=== PATIENT | male | born 1955 | race Caucasian/White ===

== ENCOUNTER 2024-10-31 09:20 | Emergency (ER) | payer MEDICARE, SELFPAY ==
--- OUTSIDE RECORDS SUMMARY | 2014-07-11 10:31 | XMS_ITS | Continuity of Care Document ---
Author Organization [facility] Address [address] [address] [place] [address] Phone Care Team Providers Care Manager Income Tax Name Role Phone Daniel Mendes MD Unavailable Unavailable Medications Medication Instructions Dosage Effective Dates (start - stop) Status Comments MiralaxBisacodylMagCit Colon Prep Use as directed - Active MiralaxBisacodylMagCit Colon Prep Use as directed - Active Zomig 5 mg Nasal [place] as needed - Act jewel oxycodone 15 [...] Diagnoses Date Provider Providers Copied on Encounter [facility], [address] [address], [facility] [place], [id number], [place] tel:[phone] [facility] External Referral 5 Vaughn Sanchez. [address] [facility], [facility] [address], [place], [place], [id number], [place]. tel:[phone] Referring Provider: Gamaliel Farrell MD L, [address] [place], [address]. tel:[phone] [facility], [address] [address], [place], [id number], [place] tel:[phone] No Information 3 Abhijit Rivas. [address] [facility], [address], [place], [place], [id number], [place]. tel:[phone] Referring Provider: Gamaliel Lemons, [address] [place], [address]. tel:[phone] [facility], [address] [address], [place], [place], [id number], [place] tel:[phone] [facility] [place] [facility] Colon Cancer ScreeningBeni gn Neoplasm Lg [address]el 5200 9 No Information Referring Provider: Nishant Stahl, [address] [place], [address]. tel:[phone] Family History Family Member Type Diagnosis Age At Onset No Information Payers Payer name Insurance type Covered republican ID Authoriza tion(s) No Information Social History [...]
--- OUTSIDE RECORDS SUMMARY | 2021-07-02 11:18 | XMS_ITS | Continuity of Care Document ---
Author Organization [facility] Address [address] [place] [phone] Phone Care Team Providers Care Pcas Name Role Phone Will Jared HANSEN Unavailable Unavailabl e Advance Directives Directive Yes / No Effective Date File Name No Information Encounters Encounter Description Practice Location Reason(s) For Visit Diagnoses Date Provider Providers Copied on Encounter [facility], [address] [place] [address], [id number], [place] tel:[phone] [facility] No Information Will Jared. [address] [facility] [place], [place], [id number], [place]. tel:[phone] Family History Family Member Type Diagnosis Age At Onset No Information Payers Payer name Insurance type Covered libertarian ID Authoriza tion(s) No Information Social History [...]
[2024-10-31] VITALS (17 sets, daily range): BP systolic 97–137; BP diastolic 63–79; PULSE 63–71; RESP 18; TEMP 36.6; O2SAT 90–94; BMI 22.4
--- NOTE | 2024-10-31 10:00 | CRLHL7_ITS ---
For Patients: As a result of the Century Cures Act, medical imaging exams and procedure reports are released immediately into your electronic medical record. You may view this report before your referring provider. If you have questions, please contact your health care provider. Indication: Right foot pain. Technique: Right foot 3 views Comparison: None Findings: Plantar and posterior calcaneal spurs are present. There is no joint effusion. No acute fracture. Midfoot alignment is maintained. Impression: No sign of acute injury. Base of the 3rd and 4th metatarsals is intact. Dictated by Guilherme Montes MD @ 10/31/2024 11:13:43 AM (Electronically Signed)
--- NOTE | 2024-10-31 10:00 | CRLHL7_ITS ---
For Patients: As a result of the Cures Act, medical imaging exams and procedure reports are released immediately into your electronic medical record. You may view this report before your referring provider. If you have questions, please contact your health care provider. INDICATION: FALL/ PAIN lower ribs, posterior - fall COMPARISON: Not available TECHNIQUE: PA chest and right ribs. FINDINGS: The lungs are clear. There is no evidence of pulmonary contusion, pneumothorax or pleural effusion. Mild tortuosity of the aorta. Vascular calcifications oblique detail views of the ribs demonstrate no evidence of fracture or intrinsic bone lesion. There is no evidence of pleural hematoma. IMPRESSION: IMPRESSION:Negative chest and right ribs. Dictated by Guilherme Montes MD @ 10/31/2024 11:15:38 AM (Electronically Signed)
[2024-10-31] MEDS: HYDROCODONE-ACETAMIN 5-325 MG 1 TAB 2 TAB PO (10:08)
--- NOTE | 2024-10-31 10:23 | ED_ITS ---
HPI - General Adult General Chief complaint: Rib Pain Stated complaint: fell yesterday and has right side pain by ribs Time Seen by Provider: 10/31/24 09:55 Source: patient and family Mode of arrival: ambulatory Limitations: no limitations History of Present Illness HPI narrative: 69-year-old male presenting today with right-sided mid back pain after falling yesterday in the shower. He states that he tripped coming out of the shower and then fell onto the toilet. He has been having worsening right-sided midback pain since then. He denies shortness of breath. He does complain of right foot pain as well unsure of what his foot hit on the way down. He did not hit his head or lose consciousness. He was able to get up without assistance. He denies neck pain. No abdominal pain. Walking is uncomfortable because of his foot but he continues to walk unassisted. Related Data Home Medications ?Medication ?Instructions ?Recorded ?Confirmed methimazole 5 mg tablet 5 mg PO QDAY 03/30/23 phenytoin sodium extended 30 mg PO 03/30/23 03/30/23 capsule (Dilantin) pregabalin 25 mg capsule 25 mg PO QDAY 03/30/2310/31 sumatriptan succinate 25 mg tablet See Rx Instructions PO .COMPLEX 03/30/23 03/30/23 Previous Rx's ?Medication ?Instructions ?Recorded albuterol sulfate 90 mcg/actuation 2 puff inhalation Q 4-6H PRN 03/30/23 aerosol inhaler shortness of breath or wheez ing #6.7 grams Allergies Allergy/AdvReac Type Severity Reaction Status Date / Time No Known Drug Allergies Allergy Verified 10/31/24 15:03 Review of Systems Status of ROS: Reports: 10 or more systems reviewed and unremarkable except as noted in History and below [facility] Medical History Acute bronchitis ?J20.9 - Acute bronchitis, unspecified (ICD-10) Shortness of breath ?R06.02 - Shortness of breath (ICD-10) Social History Smoking Status: Never smoker How often do you have a drink containing alcohol: never How often do you have six or more drinks on one occasion: Never AUDIT-C Alcohol total score: 0 Non-prescribed substance use: denies use service: No Exam Narrative: Exam Narrative: Well-nourished well-developed patient , very uncomfortable. Alert and oriented x3. Answers questions appropriately. Mood and affect are appropriate. Thoughts are goal oriented and rational. No tangential or magical thinking noted. Patient speaks in full sentences without needing to catch his breath. GCS is 15. Patient is speaking and breathing without difficulty. There is no obvious significant bleeding noted. HEENT: Normocephalic atraumatic. Pupils are equally round reactive to light. Extraocular muscles are intact. Conjunctivae are moist without any icterus noted. Moist mucous membranes. Posterior pharynx is normal. No trauma noted to the inside of the mouth. Neck is soft without tenderness. Cardiovascular: Heart is regular rate and rhythm S1 and S2 are present without any murmurs. Lungs: Slightly decreased breath sounds bilaterally no wheezes rhonchi or rales are appreciated. Deep breathing causes discomfort in the right mid back. Significant tenderness noted over the right lower posterior ribs. Abdomen: Soft and nontender nondistended with normal bowel sounds. No guarding or rebound. No masses or organomegaly appreciated. No tenderness over the liver. Extremities: Bilateral lower extremities are without edema. Patient has bruising at the base of the 3rd and 4th toes on the dorsal surface of the foot with a lot of tenderness with palpation of the area. Toes are not significantly swollen. Skin: Well perfused. Back: Normal appearance. Patient has no tenderness to palpation at the cervical, thoracic or lumbar spine. Patient has full range of motion at the neck with flexion, extension, side way bending and rotation without pain. Pain located laterally over the right lower ribs. Const: Vital Signs, click to edit/add: Vital Signs - 24 hr 10/31/24 09:38 10/31/24 13:24 10/31/24 13:25 Temperature 98 F Pulse Rate 65 64 Pulse Rate [Pulse Oximeter] 71 Respiratory Rate 18 Blood Pressure 118/79 Blood Pressure [Ri ght Upper Arm] 106/70 Pulse Oximetry 93 90 91 Oxygen Delivery Me thod Room Air 10/31/24 13:30 10/31/24 13:31 10/31/24 13:45 Temperature Pulse Rate 67 63 65 Pulse Rate [Pulse Oximeter] Respiratory Rate Blood Pressure 101/71 Blood Pressure [Ri ght Upper Arm] Pulse Oximetry 91 91 91 Oxygen Delivery Me thod 10/31/24 13:47 10/31/24 13:48 10/31/24 14:00 Temperature Pulse Rate 63 64 69 Pulse Rate [Pulse Oximeter] Respiratory Rate Blood Pressure 108/63 Blood Pressure [Ri ght Upper Arm] Pulse Oximetry 92 91 92 Oxygen Delivery Me thod 10/31/24 14:01 10/31/24 14:15 10/31/24 14:16 Temperature Pulse Rate 71 64 64 Pulse Rate [Pulse Oximeter] Respiratory Rate Blood Pressure 98/74 Blood Pressure [Ri ght Upper Arm] Pulse Oximetry 94 92 92 Oxygen Delivery Me thod 10/31/24 14:30 10/31/24 14:31 10/31/24 14:45 Temperature Pulse Rate 64 64 65 Pulse Rate [Pulse Oximeter] Respiratory Rate Blood Pressure 97/72 Blood Pressure [Ri ght Upper Arm] Pulse Oximetry 92 92 92 Oxygen Delivery Me thod 10/31/24 14:47 10/31/24 16:08 Temperature Pulse Rate 64 67 Pulse Rate [Pulse Oximeter] Respiratory Rate Blood Pressure 103/77 137/73 Blood Pressure [Ri ght Upper Arm] Pulse Oximetry 93 91 Oxygen Delivery Me thod Course Course ED Course: Certainly a concern for rib fractures. Will proceed with x-rays of the ribs, chest and foot. In the meantime two tablets of hydrocodone APAP were provided. X-rays of the foot and ribs were unremarkable. However given the amount of pain that the patient was in I am concerned that we missed fractures on the x-ray in therefore we proceeded with a chest CT. Unfortunately there was about an hour delay to get the chest CT as the CT scanner was down. Given that the patient was hemodynamically stable, I thought this was acceptable. Chest CT did not reveal any rib fractures, however did reveal a perinephric hem atoma. Because of this IV was established, labs were drawn and we proceeded with in abdomen pelvis CT with contrast. At this time, also added some lab work: CBC showed a slightly low hemoglobin at 13.0, normal white cell count. INR elevated at 1.27. Normal chemistries, normal LFTs. Urinalysis showing 2+ blood. Abdomen and pelvis CT with contrast shows a perinephric hematoma, hepatic hematoma, and intramural hematoma in the infrarenal renal artery. Discussed patient with Dr. Garcia, ER physician at [facility]-patient will be transferred to their ER for further management. Second IV established, IV fentanyl given for pain control. Vital Signs Vital signs: Initial Vital Signs Temperature 98 F 10/31/24 09:38 Temperature Source Temporal Artery Scan 10/31/24 09:38 Pulse Rate 71 10/31/24 09:38 Respiratory Rate 18 10/31/24 09:38 Blood Pressure 106/70 10/31/24 09:38 Blood Pressure Mean 82 10/31/24 09:38 Blood Pressure Position Sitting 10/31/24 09:38 Pulse Oximetry 93 10/31/24 09:38 Oxygen Delivery Method Room Air 10/31/24 09:38 Vital Signs Temperature 98 F 10/31/24 09:38 Pulse Rate 71 10/31/24 09:38 Respiratory Rate 18 10/31/24 09:38 Blood Pressure 106/70 10/31/24 09:38 Pulse Oximetry 93 10/31/24 09:38 Oxygen Delivery Method Room Air 10/31/24 09:38 Temperature 98 F 10/31/24 09:38 Pulse Rate 67 10/31/24 16:08 Respiratory Rate 18 10/31/24 09:38 Blood Pressure 137/73 10/31/24 16:08 Pulse Oximetry 91 10/31/24 16:08 Oxygen Delivery Method Room Air 10/31/24 09:38 Medications Administered Medications: Generic Name Dose Route Start Last Admin Trade Name Freq PRN Reason Stop Dose Admin Sodium Chloride 1,000 mls @ 500 mls/hr 10/31/24 15:51 10/31/24 16:04 0.9 % Sodium Chloride 1000 Ml IV 10/31/24 17:50 500 mls/hr .Q2H TATO Administration Discontinued Medications Generic Name Dose Route Start Last Admin Trade Name Freq PRN Reason Stop Dose Admin Hydrocodone Bitart/Acetaminophen 2 tab 10/31/24 10:02 10/31/24 10:08 Hydrocodone-Acetamin 5-325 Mg 1 Tab PO 10/31/24 10:03 2 tab ONCE ONE Administration Fentanyl 50 mcg 10/31/24 15:50 10/31/24 16:05 Fentanyl 100 Mcg/2 Ml Inj IVP 10/31/24 15:51 50 mcg ONCE ONE Administration Medical Decision Making MDM Narrative Medical decision making narrative: 69-year-old male status post falling in his bathroom presenting with multiple intra-abdominal hematomas. Patient will be transferred to [facility] for further management. Lab Data Lab results reviewed: Yes I reviewed the patient's lab results Labs: Lab Results 10/31/24 10/31/24 Range/Units 13:03 13:20 WBC 9.75 (4.50-11.00) K/uL RBC 5.29 (4.30-5.90) m/uL Hgb 13.0 L (13.5-17.5) gm/dL Hct 40.6 (37.0-53.0) % MCV 77 L (80-100) fL MCH 25 L (26-34) pg MCHC 32 (32-36) gm/dL RDW Coeff of Ashley 18.0 H (11.5-15.5) % Plt Count 222 (140-440) K/uL Neut % (Auto) 69.7 (42.0-72.0) % Lymph % (Auto) 18.5 L (20-44) % [place] % (Auto) 10.6 (0.0-11.0) % Eos % (Auto) 0.8 (0.0-7.0) % Baso % (Auto) 0.3 (0.0-3.0) % Neut # (Auto) 6.80 (1.7-7.0) K/uL Lymph # (Auto) 1.80 (0.90-2.90) K/uL [place] # (Auto) 1.00 H (0.00-0.90) K/UL Eos # (Auto) 0.08 (0.00-0.50) K/uL Baso # (Auto) 0.03 (0.00-0.30) K/uL Abs Immat Gran (auto) 0.01 (0.00-0.30) K/uL Imm/Tot Granulo (auto) 0.1 % INR 1.27 H (0.91-1.10) Sodium 139 (135-149) mmol/L Potassium 4.3 (3.6-5.1) mmol/L Chloride 106 (96-114) mmol/L Carbon Dioxide 26 (20-32) mmol/L Anion Gap 7 (7-15) mEq/L BUN 15 (7-30) mg/dL Creatinine 0.9 (0.5-1.5) mg/dL Estimated Creat Clear 67.99 Estimated GFR 92 ml/min Glucose 104 (60-115) mg/dL Calcium 9.0 (8.4-10.6) mg/dL Total Bilirubin 0.6 (0.1-1.5) mg/dL Direct Bilirubin 0.1 (0.0-0.5) mg/dL AST 27 (12-35) U/L ALT 15 (4-50) U/L Alkaline Phosphatase 83 (40-150) U/L Total Protein 7.2 (6.0-8.3) g/dL Albumin 4.2 (3.3-5.0) g/dL Urine Color Yellow (Yellow) Urine Appearance Clear (Clear) Urine pH 5.5 (5.0-8.5) Ur Specific [place] 1.025 (1.000-1.030) Urine Protein Trace A (Negative) Urine Glucose (UA) Negative (Negative) Urine Ketones Negative (Negative) Urine Blood 2+ A (Negative) Urine Nitrite Negative (Negative) Urine Bilirubin Negative (Negative) Urine Urobilinogen 0.2 (0.2-1.0) Ur Leukocyte Esterase Trace A (Negative) Urine RBC 2-5 A (0-2) Urine WBC 0-2 (0-5) Ur Squamous Epith Cells Few (None-Few) Urine Bacteria Few A (None) Imaging Data X-ray right foot: Attestation: I have reviewed the pertinent imaging results. Radiologist's impression: Technique: Right foot 3 views Comparison: None Findings: Plantar and posterior calcaneal spurs are present. There is no joint effusion. No acute fracture. Midfoot alignment is maintained. Impression: No sign of acute injury. Base of the 3rd and 4th metatarsals is intact. X-ray ribs: Attestation: I have reviewed the pertinent imaging results. Radiologist's impression: TECHNIQUE: PA chest and right ribs. FINDINGS: The lungs are clear. There is no evidence of pulmonary contusion, pneumothorax or pleural effusion. Mild tortuosity of the aorta. Vascular calcifications oblique detail views of the ribs demonstrate no evidence of fracture or intrinsic bone lesion. There is no evidence of pleural hematoma. IMPRESSION: IMPRESSION:Negative chest and right ribs. CT scan - chest: Attestation: I have reviewed the pertinent imaging results. Radiologist's impression: TECHNIQUE: CT chest without contrast. Multiplanar axial, coronal, and sagittal reformats are included. Intravenous contrast: None FINDINGS: Airway: Distal endobronchial plugging and circumferential bronchial wall thickening in both lung bases. Lungs: Bibasilar reticular opacities. Severe centrilobular emphysema. There are several scattered tiny pulmonary nodules. For example see the left lower lobe on series 3 image 58 and 61. No nodules larger than 6 millimeters. No pulmonary edema. Pleura: No pleural effusion. No pneumothorax. Lymph nodes: No thoracic adenopathy. Mediastinum: No pneumomediastinum. Peripherally calcified right thyroid nodule measures 1 centimeter. Heart and great vessels: No pericardial effusion. Normal cardiac chamber size. Heavily calcified coronary artery and moderate other atherosclerotic plaques. No aortic aneurysm. Normal caliber main pulmonary artery. Chest wall: Normal. No masses. Upper abdomen: Hyperdense subcapsular and perinephric right hematoma measures 3.9 x 2.5 cm on series 2, image 136. There is some adjacent perinephric stranding. This is only partially included in the field of view. Bones: No fractures. No focal bone lesions. IMPRESSION: 1. Right perinephric hematoma is only partially included in the field of view. Recommend CT abdomen pelvis with IV contrast. 2. There are a few scattered pulmonary nodules and severe centrilobular emphysema. Per the Fleischner society criteria, recommend a follow-up chest CT in 12 months. This patient may also be a good candidate for lung cancer screening. CT scan - abdomen: Attestation: I have reviewed the pertinent imaging results. Radiologist's impression: TECHNIQUE: CT abdomen and pelvis acquired with 75 cc Isovue 370 IV contrast. COMPARISON: Same day chest CT FINDINGS: Lower chest: Please see same-day chest CT for findings above the diaphragm. Liver: Crescentic high attenuation collection along the medial right liver border measuring 4.3 cm (4), is concerning for hepatic injury. The liver is otherwise normal in size and attenuation. No suspicious masses. Gallbladder and bile ducts: Unremarkable. No stones or inflammation. No biliary dilatation. Pancreas: Top-normal pancreatic duct caliber measuring 4 mm, nonspecific Spleen: Unremarkable. Normal in size. No masses. Adrenal glands: Unremarkable. No nodules. Kidneys: Heterogeneous, although predominantly high attenuation collection, centered at the right interpolar region. This may be associated with an underlying renal lesion. This measures 3.1 x 5.1 x 6.4 cm and extends to Gerota`s fascia. GI tract: Dilated air-filled transverse colon measuring up to 8.2 cm. No sign of mass or inflammation. Normal appendix. Vasculature: Abdominal aorta is normal in caliber. Mesenteric arteries are patent. Extensive vascular calcifications. Intramural hematoma involving the infrarenal aorta and right common iliac artery. 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 Lymph nodes: No lymphadenopathy. Peritoneum/Abdominal Wall: Trace pelvic free fluid. No sign of mass or infiltration. No free air. Pelvis: Unremarkable. Bones: Unremarkable for age. IMPRESSION: 1. Right perinephric hematoma measuring up to 6.4 cm, may be associated with an underlying renal lesion. There is mild compression of the underlying renal parenchyma. 2. Suspected hepatic injury with crescentic hematoma along the medial right liver border measuring up to 4.3 cm. 3. Dilated transverse colon may be secondary to ileus. No definite evidence of obstruction. 4. Extensive calcified and noncalcified atherosclerotic plaque of the abdominal aorta and right common iliac artery. 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 Discharge Plan Discharge Clinical Impression: Liver hematoma, Perinephric hematoma Patient Disposition: Xfer Other Discharge Location: [facility] Prescriptions: No Action Dilantin 30 mg capsule PO pregabalin 25 mg capsule 25 mg PO QDAY sumatriptan succinate 25 mg tablet See Rx Instructions PO .COMPLEX Rx Instructions: take 1 tab at onset of headache; if no relief may repeat 1 tab after at least 2 hrs; max = 4 tabs/24 hr PO methimazole 5 mg tablet 5 mg PO QDAY albuterol sulfate 90 mcg/actuation HFA aerosol inhaler 2 puff inhalation Q4-6H PRN (Reason: shortness of breath or wheezing) Qty: 6.7 0RF Stand Alone Forms: QWiPS Info Instructions
--- OUTSIDE RECORDS SUMMARY | 2024-10-31 10:52 | XMS_ITS | Clinical Summary ---
Author Organization [facility] Address [address] [place] [address] Care Team Providers Care Seismograph Observer Name Role Phone Gamaliel Farrell MD Primary Care Provider [phone] Source Comments You are receiving this document as you are listed as the primary care provider,follow-up provider, or the patient has been referred to you for consultation.This is in compliance with the Medicare and[facility] EHR Incentive Program,which states Providers who transition their patient to another setting of careor provider of care or refers their patient to another provider of care shouldprovide summary care record for each transition of care or referral. [facility] Allergies No known active allergies Medications methIMAzole (TAPAZOLE) 5 MG tabletIndications:S ubclinical hyperthyroidism (HRC) Take 1/2 tab daily, 4 days weekly only. 30 Tablet 3 4 Active DILANTIN 100 MG capsuleIndications: Convulsions, unspecified convulsion type (HRC) Take 2 Capsules (200 mg) by mouth two times a day. 360 Capsule 3 4 Active ALBUterol sulfate HFA 108 (90 Base) MCG/ACT inhaler Inhale 1-2 Puffs every 4 hours as needed for Wheezing. 18 g 2 4 Active SUMAtriptan (IMITREX) 50 MG tabletIndications:M igraine without status migrainosus, not intractable, unspecified migraine type Take 1 Tablet (50 mg) by mouth as needed for Migraine. at onset of headache; may repeat one time in 2 hours if headache recurs. 27 Tablet 3 4 Active pregabalin (LYRICA) 150 MG capsuleIndications: Idiopathic peripheral neuropathy TAKE 1 CAPSULE (150 MG) BY MOUTH THREE TIMES A DAY. 90 Capsule 2 5 Active Active Problems Problem Noted Date Diagnosed Date History of DVT of lower extremity 10/16/2013 Overview (12/17/2015): August 04, 2010, right lower leg DVT, coumadin stopped December 2010 , coagulation work-up negative, patient advised to stop smoking May 22, 2011 , Left Lower Leg DVT Coumadin stopped November 2011? 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 jail current use of ant icoagulant therapy 10/20/2010 01/11/2011 Overview (01/05/2017): jail (current) use of anticoagulants Acute thromboembolism of cheikh p veins of lower extremity 10/20/2010 01/11/2011 Overview (01/05/2017): Acute venous embolism and thrombosis of unspecified deep vessels of lower extremity (HRC) bed bug exterminator current use of ant icoagulant therapy 10/20/2010 01/11/2011 Overview (08/22/2017): Update from Spring 2017 IMO load. Embolism and thrombosis 08/04/2010 07/3 05/2011 Overview (01/05/2017): LW Modifier: Rt leg LW Onset: 08/04/2010 ; Deep Venous Thrombosis Immunizations Immunization Administration Dates Next Due Flu Vac Preserv Free (3+yrs) 03/30/2013, 03/25/2012,01/25/2011,2009,07/14/2009,05/15/2008,03/13/2007 H1n1 Miv Sanofi 3+ Yr (Injected) 07/14/2009 Influenza IIV4 (Quadrivalent ) 0.5mL (05497) 01/25/2019,06/17/2015,04/29/2014 Moderna Monovalent 12+ 05/20/2021,10/27/2020, TDAP (ADACEL) 05/15/2008 Td 1998 Tdap 07/21/2018 Zoster (Zostavax) 04/29/2014 Family History Medical History Relation Name Comments Cancer Father osman Cancer Mother luis f Relation Name Status Comments Father osman Mother luis f Social History Tobacco Use Types Packs/Day Years Used Date Smoking Tobacco: Every Day Cigarettes 1 35 Started: 979; Last attempted to quit: 03/16/2014 Electric Cigarette Passive Smoke Exposure: Never Smokeless Tobacco: Never Tobacco Cessation:Ready to Q uit: Not Asked; Counseling Given: Not Answered Comments:Smoking History Packs/day: Alcohol Use Standard Drinks/Week Comments No 0 (1 standard drink = 0.6 oz pur e alcohol) PHQ-2 Answer Date Recorded PHQ-2 Score 1 10/19/2023 Sex and Gender Information Value Date Recorded Sex Assigned at Not on file Legal Sex Male 9:37 AM CDT Gender Identity Not on file Sexual Orientation Not on file Last Filed Vital Signs Vital Sign Reading Time Taken Comments Blood Pressure 130/89 08/05/2022 10:22 AM CDT Pulse 70 08/05/2022 10:22 AM CDT Temperature 37 C (98.6 F) 02/02/2022 9:37 AM CDT Respiratory Rate 20 02/02/2022 9:37 AM CDT Oxygen Saturation - - Inhaled Oxygen Concentration - - Weight 75.3 kg (166 lb) 10/19/2023 10:30 AM CDT reported Height 175.3 cm (5' 9) 08/04/2021 8:27 AM CDT r eported Body Mass Index 24.51 08/04/2021 8:27 AM CDT Plan of Treatment Health Maintenance Due Date Last Done Comments Colonoscopy 1955 Pneumococcal Vaccine 50+ Yrs (1 of 2 - PCV) 07/14/1974 Zoster/Shingles Vaccine (2 of 3) 06/24/2014 04/29/2014 Cholesterol 06/17/2020 06/17/2015, 01/2013, 04/21/2011, Additional history exists FIT Colon Cancer Screening 08/17/2023 08/16/2022, COVID-19 Vaccine ( season) 2024 05/20/2021, 10/27/2020, 10/02/2020 Medicare Annual Wellness Visit 10/18/2024 10/19/2023, 10/19/2023, 08/05/2022, Additional history exists Influenza Vaccine (Season Ended) 2025 01/25/2019, 06/17/2015, 04/29/2014, Additional history exists DTaP/Tdap/Td Vaccine (3 - Tdap) 07/21/2028 07/21/2018, 05/15/2008, 1998 RSV Vaccine (1 - 1-dose 75+ series) 07/14/2030 Hep C Screening (Preventive Services) Completed 08/11/2016 PSA Screening Discussion Discontinued 023, 04/01/2010, 05/15/2008, Additional history exists HepA Vaccine Aged Out No longer eligi ble based on patient's age to complete this topic HepB Vaccine Aged Out No longer eligi ble based on patient's age to complete this topic Hib Vaccine Aged Out No longer eligi ble based on patient's age to complete this topic IPV (Polio) Vaccine Aged Out No longe r eligible based on patient's age to complete this topic MCV4 Vaccine Aged Out No longer eligi ble based on patient's age to complete this topic Meningococcal B Vaccine Aged Out No l onger eligible based on patient's age to complete this topic Procedures Procedure Name Priority Date/Time Associated Diagnosis Comments FIT,OCCULT BLOOD, STOOL Routine 08/16/2022 8:00 AM CDT Screen for colon cancer PROSTATIC SPECIFIC ANTIGEN(SCREEN) Routine 08/05/2022 11:25 AM CDT Screening for prostate cancer HEPATITIS C ANTIBODY, WITH REFLEX (ANTI-HCV) Routine 08/11/2016 11:31 AM CDT Need for hepatitis B screening test LIPID PANEL & DIRECT LDL (IF NEEDED) Routine 06/17/2015 10:27 AM HEATING AND VENTILATING DRAFTER Screening cholesterol level from Last 3 Months or Most Recently Relevant to Health Maintenance Results * FIT Colon Rectal Cancer Screening (08/16/2022 8:00 AM CDT) FIT Specimen 1 Negative Negative 08/17/2022 9:37 AM CDT [facility] Stool 08/16/2022 8:00 AM CDT 08/16/2022 8:40 PM CDT us Gamaliel Farrell MD LAB_1 Final Result Performing Organization Address City/State/[facility] Co de Phone Number [facility] [address] [phone] * Prostatic Specific Antigen (Screen) (08/05/2022 11:25 AM CDT) Prostatic Specific Antigen 0.3 0.0 - 4.0 ng/mL 08/05/2022 6:38 PM CDT [facility] Blood Venipuncture / Unknown 08/05/2022 11:25 AM CDT 08/05/2022 11:25 AM CDT Narrative [facility] - 08/05/2022 6:38 PM CDT [employer] [facility] PSA Chemiluminescent immunoassay is used. Results obtained with different test methods or kits cannot be used interchangeably. us Gamaliel Farrell MD LAB_1 Final Result [id number] [place] [address] * Hepatitis C Virus Michelle with Reflex (08/11/2016 11:31 AM CDT) Hepatitis C Antibody Nonreactive Nonreactive PN SOFT 08/11/2016 11:3 1 AM CDT 08/11/2016 3:10 PM CDT Narrative PN SOFT - 08/11/2016 5:09 PM [place] [address] CLIA number [id number] Gamaliel Farrell MD LAB_1 Final Result Performing Organization Address [facility] Co de Phone Number PN SOFT [address] [place] [phone] * (ABNORMAL) Lipid Panel and Direct LDL(If Needed) (06/17/2015 10:27 AM HEATING AND VENTILATING DRAFTER) Cholesterol 137 0 - 199 mg/dL HP CONVERSION Triglycerides 87 4 - 149 mg/dL HP CONVERSION HDL Cholesterol 35(L) >39 mg/dL HP CONVERSION Cholesterol/HDL Ratio Screen 3.9 HP CONVERSION LDL Calculated 85 19 - 130 mg/dL HP CONVERSION Hours Fasting na HP CONVERSION 06/17/2015 10:2 7 AM HEATING AND VENTILATING DRAFTER 06/17/2015 4:05 PM HEATING AND VENTILATING DRAFTER Narrative HP CONVERSION - 06/17/2015 4:24 PM HEATING AND VENTILATING DRAFTER Performed at [facility], [address] [place] [address] CLIA number [id number] Gamaliel Farrell MD LAB_1 Final Result HP CONVERSION from Last 3 Months or Most Recently Relevant to Health Maintenance [place] [address] [place] [address] MEDICARE [facility] PLUS MEDICARE [facility] PLUS Care Teams Seismograph Observer Relationship Specialty Start Date End Date Gamaliel Farrell MD [address] [facility] [place] [address] PCP - General 06/04/13
--- OUTSIDE RECORDS SUMMARY | 2024-10-31 10:52 | XMS_ITS | Clinical Summary ---
Author Organization [facility] Address [address] [place] [address] Care Team Providers Care Taxi Truck Driver Name Role Phone Gamaliel Farrell MD Primary Care Provider + [phone] Allergies No known active allergies Medications phenytoin extended (DILANTIN) 100 mg ER capsule Take 200 mg by mouth every 12 hours. Active folic acid 1 mg tablet Take 1 mg by mouth once daily. Active Oxycodone HCl 30 mg immediate release tablet Take 30 mg by mouth every 4 hours if needed. Active ZOLMitriptan (ZOMIG) 5 mg tablet Take 5 mg by mouth every 2 hours if needed. Max dose: 10mg in 24 hrs Active diazepam (VALIUM) 5 mg tablet Take 5 mg by mouth at bedtime. Active aspirin chewable 81 mg chewable tablet Take 81 mg by mouth once daily with a meal. Active clonazePAM (KLONOPIN) 0.5 mg tablet TK 1 TO 2 TS PO Q 4 TO 6 H PRA. MAX 3 TS PER DAY 0 7 Active FLUoxetine (SARAFEM) 20 mg tablet TK 1 T PO QAM FOR DEPRESSION 0 7 Active Active Problems Problem Noted Date Diagnosed Date Hypermetropia of both eyes 12/17/2016 Family History Medical History Relation Name Comments Cancer-breast No Family History Cancer-colon No Family History Cancer-ovarian No Family History Cancer-prostate No Family History Social History Tobacco Use Types Packs/Day Years Used Date Smoking Tobacco: Former Cigarettes 1 30 1 05/16/1983 - 03/16/2014 Alcohol Use Standard Drinks/Week Comments No 0 (1 standard drink = 0.6 oz pur e alcohol) Sex and Gender Information Value Date Recorded Sex Assigned at Not on file Legal Sex Male 6:37 AM POLO COACH Gender Identity Not on file Sexual Orientation Not on file Obstetrics History Last Filed Vital Signs Vital Sign Reading Time Taken Comments Blood Pressure 139/69 05/07/2014 10:42 AM POLO COACH Pulse 63 05/07/2014 10:42 AM POLO COACH Temperature 37.1 C (98.8 F) 05/07/2014 8:53 AM POLO COACH Respiratory Rate 16 05/07/2014 10:42 AM POLO COACH Oxygen Saturation 99% 05/07/2014 10:42 AM POLO COACH Inhaled Oxygen Concentration - - Weight 73.5 kg (162 lb) 05/07/2014 8:53 AM POLO COACH Height 177.8 cm (5' 10) 05/07/2014 8:53 AM POLO COACH Body Mass Index 23.24 05/07/2014 8:53 AM POLO COACH Plan of Treatment Health Maintenance Due Date Last Done Comments Tdap 07/14/1966 Depression screening for age 12+ 1967 BMI (ht and wt on same day) for age 18+ 07/14/1973 Hepatitis C screening for ag e 18-79 07/14/1973 Tetanus booster 1975 Colonoscopy through age 75 07/14/2000 Lipids for age 45-75 07/14/2000 Pneumococcal series for age 50+ (1 of 1 - PCV) 07/14/2005 Zoster (shingles) series for age 50+ (1 of 2) 07/14/2005 COVID-19 vaccine series ( - 2023-25 season) 2024 Influenza Vaccine (Season Ended) 2025 RSV vaccine for adults or (1 - 1-dose 75+ series) 07/14/2030 Hepatitis B series for 19+ Aged Out N o longer eligible based on patient's age to complete this topic Insurance [facility] Care Teams Taxi Truck Driver Relationship Specialty Start Date End Date Gamaliel Farrell MD [address] [facility] [address] [place] [phone] PCP - General Family Practice 05/07/14
--- NOTE | 2024-10-31 11:17 | CRLHL7_ITS ---
For Patients: As a result of the Century Cures Act, medical imaging exams and procedure reports are released immediately into your electronic medical record. You may view this report before your referring provider. If you have questions, please contact your health care provider. INDICATION: Concern for right-sided rib fractures, lower rib pain, fall. COMPARISON: Same day rib radiographs, chest radiograph 03/30/2023 TECHNIQUE: CT chest without contrast. Multiplanar axial, coronal, and sagittal reformats are included. Intravenous contrast: None FINDINGS: Airway: Distal endobronchial plugging and circumferential bronchial wall thickening in both lung bases. Lungs: Bibasilar reticular opacities. Severe centrilobular emphysema. There are several scattered tiny pulmonary nodules. For example see the left lower lobe on series 3 image 58 and 61. No nodules larger than 6 millimeters. No pulmonary edema. Pleura: No pleural effusion. No pneumothorax. Lymph nodes: No thoracic adenopathy. Mediastinum: No pneumomediastinum. Peripherally calcified right thyroid nodule measures 1 centimeter. Heart and great vessels: No pericardial effusion. Normal cardiac chamber size. Heavily calcified coronary artery and moderate other atherosclerotic plaques. No aortic aneurysm. Normal caliber main pulmonary artery. Chest wall: Normal. No masses. Upper abdomen: Hyperdense subcapsular and perinephric right hematoma measures 3.9 x 2.5 cm on series 2, image 136. There is some adjacent perinephric stranding. This is only partially included in the field of view. Bones: No fractures. No focal bone lesions. IMPRESSION: 1. Right perinephric hematoma is only partially included in the field of view. Recommend CT abdomen pelvis with IV contrast. 2. There are a few scattered pulmonary nodules and severe centrilobular emphysema. Per the Fleischner society criteria, recommend a follow-up chest CT in 12 months. This patient may also be a good candidate for lung cancer screening. Discussed with Dr. Fierro at 1:03 p.m. on 10/31/2024. Please note that all CT scans at this facility use dose modulation, iterative reconstruction, and/or weight-based dosing when appropriate to reduce radiation dose to as low as reasonably achievable. Dictated by Angi Doss MD @ 10/31/2024 1:03:24 PM (Electronically Signed)
--- NOTE | 2024-10-31 13:02 | CRLHL7_ITS ---
For Patients: As a result of the 21st Century Cures Act, medical imaging exams and procedure reports are released immediately into your electronic medical record. You may view this report before your referring provider. If you have questions, please contact your health care provider. INDICATION: Perinephric hematoma TECHNIQUE: CT abdomen and pelvis acquired with 75 cc Isovue 370 IV contrast. COMPARISON: Same day chest CT FINDINGS: Lower chest: Please see same-day chest CT for findings above the diaphragm. Liver: Crescentic high attenuation collection along the medial right liver border measuring 4.3 cm (4), is concerning for hepatic injury. The liver is otherwise normal in size and attenuation. No suspicious masses. Gallbladder and bile ducts: Unremarkable. No stones or inflammation. No biliary dilatation. Pancreas: Top-normal pancreatic duct caliber measuring 4 mm, nonspecific Spleen: Unremarkable. Normal in size. No masses. Adrenal glands: Unremarkable. No nodules. Kidneys: Heterogeneous, although predominantly high attenuation collection, centered at the right interpolar region. This may be associated with an underlying renal lesion. This measures 3.1 x 5.1 x 6.4 cm and extends to Gerota`s fascia. GI tract: Dilated air-filled transverse colon measuring up to 8.2 cm. No sign of mass or inflammation. Normal appendix. Vasculature: Abdominal aorta is normal in caliber. Mesenteric arteries are patent. Extensive vascular calcifications. Intramural hematoma involving the infrarenal aorta and right common iliac artery. 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 Lymph nodes: No lymphadenopathy. Peritoneum/Abdominal Wall: Trace pelvic free fluid. No sign of mass or infiltration. No free air. Pelvis: Unremarkable. Bones: Unremarkable for age. IMPRESSION: 1. Right perinephric hematoma measuring up to 6.4 cm, may be associated with an underlying renal lesion. There is mild compression of the underlying renal parenchyma. 2. Suspected hepatic injury with crescentic hematoma along the medial right liver border measuring up to 4.3 cm. 3. Dilated transverse colon may be secondary to ileus. No definite evidence of obstruction. 4. Extensive calcified and noncalcified atherosclerotic plaque of the abdominal aorta and right common iliac artery. 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 Please note that all CT scans at this facility use dose modulation, iterative reconstruction, and/or weight-based dosing when appropriate to reduce radiation dose to as low as reasonably achievable. Dictated by Rocio Garza MD @ 10/31/2024 3:32:53 PM (Electronically Signed)
[2024-10-31 13:35] LABS: Basophils Absolute Auto 0.03 K/uL (0.00-0.30); Basophils Percent Auto 0.3 % (0.0-3.0); Eosinophils Absolute Auto 0.08 K/uL (0.00-0.50); Eosinophils Percent Auto 0.8 % (0.0-7.0); Hematocrit 40.6 % (37.0-53.0); Immature Granulocytes Abs Auto 0.01 K/uL (0.00-0.30); Immature Granulocytes Pct Auto 0.1 %; Lymphocytes Percent Auto 18.5 % (20-44); Mean Corpuscular HGB Conc 32 gm/dL (32-36); Mean Corpuscular Hemoglobin 25 pg (26-34); Mean Corpuscular Volume 77 fL (80-100); Monocytes Percent Auto 10.6 % (0.0-11.0); Neutrophils Percent Auto 69.7 % (42.0-72.0); Platelet Count* 222 K/uL (140-440); Red Blood Count 5.29 m/uL (4.30-5.90); White Blood Count* 9.75 K/uL (4.50-11.00)
[2024-10-31 13:38] LABS: Slide Review Reflex No
[2024-10-31 13:46] LABS: Albumin* 4.2 g/dL (3.3-5.0); Chloride* 106 mmol/L (96-114); Potassium* 4.3 mmol/L (3.6-5.1); Sodium* 139 mmol/L (135-149)
[2024-10-31 13:48] LABS: Blood Urea Nitrogen* 15 mg/dL (7-30); Creatinine* 0.9 mg/dL (0.5-1.5); Est. Creatinine Clearance* 67.99; Estimated Glomerular Filt Rate 92 ml/min
[2024-10-31 13:49] LABS: Alanine Aminotransferase* 15 U/L (4-50); Alkaline Phosphatase* 83 U/L (40-150); Anion Gap 7 mEq/L (7-15); Aspartate Amino Transferase* 27 U/L (12-35); Bilirubin Direct* 0.1 mg/dL (0.0-0.5); Bilirubin Total* 0.6 mg/dL (0.1-1.5); Carbon Dioxide* 26 mmol/L (20-32); Glucose* 104 mg/dL (60-115); Total Protein* 7.2 g/dL (6.0-8.3)
[2024-10-31 13:51] LABS: INR 1.27 (0.91-1.10); Prothrombin Time 16.8 Seconds
[2024-10-31 15:16] LABS: Appearance Urine Clear (Clear); Bilirubin Urine Negative (Negative); Blood Urine 2+ (Negative); Color Urine Yellow (Yellow); Glucose Urine Negative (Negative); Ketones Urine Negative (Negative); Leukocyte Esterase Urine Trace (Negative); Nitrite Urine Negative (Negative); Protein Urine Trace (Negative); Specific Gravity Urine 1.025 (1.000-1.030); Urobilinogen Urine 0.2 (0.2-1.0); pH Urine 5.5 (5.0-8.5)
[2024-10-31 16:04] LABS: Bacteria Urine Few; Squamous Epithelial Cell Urine Few (None-Few); WBC Urine 0-2 (0-5)
[2024-10-31] MEDS: 0.9 % SODIUM CHLORIDE 1000 ml 1,000 ML 500 ML IV (16:04)
[2024-10-31] MEDS: fentaNYL 100 MCG/2 ML inj 50 MCG IVP (16:05)
== END 2024-10-31 16:37 | disposition other institution (70) ==
PROVIDERS: Emergency Provider Family Medicine
DX: S36.112A Contusion of liver, initial encounter (principal); M79.671 Pain in right foot; S37.091A Other injury of right kidney, initial encounter; W01.10XA Fall on same level from slipping, tripping and stumbling with subsequent striking against unspecified object, initial encounter
CPT/HCPCS: 36415; 71101; 71250; 73630; 74177; 80048; 80076; 81001; 85025; 85610; 87086; 87186; 96374; 99284; 99285; A9270; J3010; J7030; Q9967

== ENCOUNTER 2024-10-31 16:15 | Outpatient (CLI) | payer MEDICARE, SELFPAY ==
--- OUTSIDE RECORDS SUMMARY | 2014-07-11 10:31 | XMS_ITS | Continuity of Care Document ---
Author Organization [facility] Address [address] [address] [place] [address] Phone Care Team Providers Care Cooling Tower Operator Name Role Phone Daniel Mendes MD Unavailable Unavailable Medications Medication Instructions Dosage Effective Dates (start - stop) Status Comments MiralaxBisacodylMagCit Colon Prep Use as directed - Active MiralaxBisacodylMagCit Colon Prep Use as directed - Active Zomig 5 mg Nasal Al[place] as needed - Act jewel oxycodone 15 mg Tab 1 as directed tid - Active Dilantin Kapseal 100 mg Cap Take 5 table ts by mouth daily - Active Procedures Procedure Date Colonoscopy Flex; W/remov Les- 09 Level Iv-surg Path Gross/micro 09 Advance Directives Directive Yes / No Effective Date File Name No Information Encounters Encounter Description Practice Location Reason(s) For Visit Diagnoses Date Provider Providers Copied on Encounter [facility], [address] [address], [facility] [place], [id number], [place] tel:[phone] [facility] External Referral 5 Vaughn Sanchez. [address] [facility], [facility] [address], [place], [place], [id number], [place]. tel:[phone] Referring Provider: Gamaliel Farrell MD L, [address] [place], [address]. tel:[phone] [facility], [address] [address], [place], [id number], [place] tel:[phone] No Information 3 Abhijit Rivas. [address] [facility], [address], [place], [place], [id number], [place]. tel:[phone] Referring Provider: Gamaliel Lemons, [address] [place], [address]. tel:[phone] [facility], [address] [address], [place], [place], [id number], [place] tel:[phone] [facility] Colon Cancer ScreeningBeni gn Neoplasm Lg Bowel 5[address] 9 No Information Referring Provider: Nishant Stahl, [address] [place], [address]. tel:[phone] Family History Family Member Type Diagnosis Age At Onset No Information Payers Payer name Insurance type Covered constitution party ID Authoriza tion(s) No Information Social History Type Description Quantity Date Captured Comments Sex Male Smoking Status No Information Chief Complaint And Reason For Visit No Information Reason For Referral Reason For Referral No Information History Of Present Illness Encounter Date Complaint History Of Prese nt Illness No Information Functional Status Date Functional Assessmen t No Information Instructions Date Instruction Additional Infor mation No Information Assessments Type Assessment Date assessment External Referral Patient Care Teams Name Effective Dates (start - stop) Status Members No Information
--- OUTSIDE RECORDS SUMMARY | 2021-07-02 11:18 | XMS_ITS | Continuity of Care Document ---
Author Organization [facility] Address [address] [place] [phone] Phone Care Team Providers Care Resource Room Teacher Name Role Phone Will Jared HANSEN Unavailable Unavailabl e Advance Directives Directive Yes / No Effective Date File Name No Information Encounters Encounter Description Practice Location Reason(s) For Visit Diagnoses Date Provider Providers Copied on Encounter [facility], [address] [place] [address], [id number], [place] tel:[phone] [facility] No Information Will Jared. [address] [facility] [place], [id number], [place]. tel:[phone] Family History Family Member Type Diagnosis Age At Onset No Information Payers Payer name Insurance type Covered alliance party ID Authoriza tion(s) No Information Social [...] mation No Information Assessments Type Assessment Date No Information Patient Care Teams Name Effective Dates (start - stop) Status Members No Information
--- OUTSIDE RECORDS SUMMARY | 2024-11-02 00:18 | XMS_ITS | Clinical Summary ---
Author Organization [facility] Address [address] [place] [address] Care Team Providers Care Other Sales Support Worker Name Role Phone Gamaliel Farrell MD Primary Care Provider + [phone] Allergies No known active allergies Medications phenytoin [...] on file Legal Sex Male 6:37 AM SPOT WELDER Gender Identity Not on file Sexual Orientation Not on file Obstetrics History Last Filed Vital Signs Vital Sign Reading Time Taken Comments Blood Pressure 139/69 05/07/2014 10:42 AM SPOT WELDER Pulse 63 05/07/2014 10:42 AM SPOT WELDER Temperature 37.1 C (98.8 F) 05/07/2014 8:53 AM SPOT WELDER Respiratory Rate 16 05/07/2014 10:42 AM SPOT WELDER Oxygen Saturation 99% 05/07/2014 10:42 AM SPOT WELDER Inhaled Oxygen Concentration - - Weight 73.5 kg (162 lb) 05/07/2014 8:53 AM SPOT WELDER Height 177.8 cm (5' 10) 05/07/2014 8:53 AM SPOT WELDER Body Mass Index 23.24 05/07/2014 8:53 AM SPOT WELDER Plan of Treatment Health Maintenance Due Date [...] patient's age to complete this topic Insurance [facility] Care Teams Other Sales Support Worker Relationship Specialty Start Date End Date Gamaliel Farrell MD [address] [facility] [address] [place] [phone] PCP - General Family Practice 05/07/14
--- OUTSIDE RECORDS SUMMARY | 2024-11-02 00:18 | XMS_ITS | Clinical Summary ---
Author Organization [facility] Address [address] [place] [address] Care Team Providers Care Sailmaker Name Role Phone Gamaliel Farrell MD Primary Care Provider [phone] Source Comments You are receiving this document as you are listed as the primary care provider,follow-up provider, or the patient has been referred to you for consultation.This is in compliance with the Medicare and[facility] E[facility] Incentive Program,which states Providers who transition their patient to another setting of careor provider of care or refers their patient to another provider of care shouldprovide summary care record for each transition of care or referral. [facility] Allergies No known active allergies Medications methIMAzole [...] Date DVT (deep venous thrombosis) 05/24/2011 12/14/2011 senior living current use of ant icoagulant therapy 05/24/2011 12/14/2011 Overview (08/22/2017): Update from Spring 2017 IMO load. senior living current use of ant icoagulant therapy 10/20/2010 01/11/2011 Overview (01/05/2017): senior living (current) use of anticoagulants Acute thromboembolism of cheikh p veins of lower extremity 10/20/2010 01/11/2011 Overview (01/05/2017): Acute venous embolism and thrombosis of unspecified deep vessels of lower extremity (HRC) supervisor intermediates current use of ant icoagulant therapy 10/20/2010 01/11/2011 Overview (08/22/2017): Update from Spring 2017 IMO load. Embolism and thrombosis 08/04/2010 07/3 05/2011 Overview (01/05/2017): LW Modifier: Rt leg LW Onset: 08/04/2010 ; Deep Venous Thrombosis Immunizations Immunization Administration Dates Next Due Flu Vac Preserv Free (3+yrs) 03/30/2013, 03/25/2012,01/25/2011,2009,07/14/2009,05/15/2008,03/13/2007 H1n1 Miv Sanofi 3+ Yr (Injected) 07/14/2009 Influenza IIV4 (Quadrivalent ) 0.5mL (25990) 01/25/2019,06/17/2015,04/29/2014 Moderna Monovalent 12+ 05/20/2021,10/27/2020, TDAP (ADACEL) [...] LDL (IF NEEDED) Routine 06/17/2015 10:27 AM MANAGER STRATEGIC Screening cholesterol level from Last 3 Months or Most Recently Relevant to Health Maintenance Results * FIT Colon Rectal Cancer Screening (08/16/2022 8:00 AM CDT) FIT Specimen 1 Negative Negative 08/17/2022 9:37 AM CDT [facility] Stool 08/16/2022 8:00 AM CDT 08/16/2022 8:40 PM CDT us Gamaliel Farrell MD LAB_1 Final Result Performing Organization Address City/State/[facility] Co de Phone Number [facility] [address] [phone] * Prostatic Specific Antigen (Screen) (08/05/2022 11:25 AM CDT) Prostatic Specific Antigen 0.3 0.0 - 4.0 ng/mL 08/05/2022 6:38 PM CDT [facility] Blood Venipuncture / Unknown 08/05/2022 11:25 AM CDT 08/05/2022 11:25 AM CDT Narrative [facility] - 08/05/2022 6:38 PM CDT [employer] [facility] PSA Chemiluminescent immunoassay is used. Results obtained with different test methods or kits cannot be used interchangeably. us Gamaliel Farrell MD LAB_1 Final Result [id number] [place] [address] * Hepatitis C Virus Michelle with Reflex (08/11/2016 11:31 AM CDT) Hepatitis C Antibody Nonreactive Nonreactive PN SOFT 08/11/2016 11:3 1 AM CDT 08/11/2016 3:10 PM CDT Narrative [facility] - 08/11/2016 5:09 PM [place] [address] CLIA number [id number] Gamaliel Farrell MD LAB_1 Final Result Performing Organization Address [facility] Co de Phone Number PN SOFT [address] [place] [phone] * (ABNORMAL) Lipid Panel and Direct LDL(If Needed) (06/17/2015 10:27 AM MANAGER STRATEGIC) Cholesterol 137 0 - 199 mg/dL HP CONVERSION Triglycerides 87 4 - 149 mg/dL HP CONVERSION HDL Cholesterol 35(L) >39 mg/dL HP CONVERSION Cholesterol/HDL Ratio Screen 3.9 HP CONVERSION LDL Calculated 85 19 - 130 mg/dL HP CONVERSION Hours Fasting na HP CONVERSION 06/17/2015 10:2 7 AM MANAGER STRATEGIC 06/17/2015 4:05 PM MANAGER STRATEGIC Narrative HP CONVERSION - 06/17/2015 4:24 PM MANAGER STRATEGIC Performed at [facility], [address] [place] [address] CLIA number [id number] Gamaliel Farrell MD LAB_1 Final Result HP CONVERSION from Last 3 Months or Most Recently Relevant to Health Maintenance Insurance [address] [address] MEDICARE [facility] MEDICARE [facility] Care Teams Sailmaker Relationship Specialty Start Date End Date Gamaliel Farrell MD [address] [facility] [place] [address] PCP - General 06/04/13
== END 2024-10-31 16:16 | disposition home or self-care (01) ==
LOC: AMB 11-01 11:44
PROVIDERS: Visit Provider Emergency Medicine
DX: S36.112A Contusion of liver, initial encounter (principal); S37.019A Minor contusion of unspecified kidney, initial encounter
CPT/HCPCS: A0425; A0433

== ENCOUNTER 2024-11-26 15:28 | Outpatient (CLI) | payer MEDICARE, SELFPAY | END 2024-11-26 15:29 | disposition home or self-care (01) | LOC: NFLDREF 11-28 03:52 | PROVIDERS: Visit Provider Physician Assistant Medical | DX: G40.909 Epilepsy, unspecified, not intractable, without status epilepticus (principal); E05.90 Thyrotoxicosis, unspecified without thyrotoxic crisis or storm; N40.0 Benign prostatic hyperplasia without lower urinary tract symptoms; Z12.5 Encounter for screening for malignant neoplasm of prostate; Z13.6 Encounter for screening for cardiovascular disorders | CPT/HCPCS: 80053; 80061; 84443; G0103 ==